=== PATIENT | female | born 1980 | race Caucasian/White ===

== ENCOUNTER → 2019-06-15 09:50 | Outpatient (CLI) | payer BC, SELFPAY | PROVIDERS: PCP Family Medicine; Visit Provider Family Medicine | DX: R06.02 Shortness of breath (principal); G47.33 Obstructive sleep apnea (adult) (pediatric); M79.604 Pain in right leg; M79.605 Pain in left leg; R68.3 Clubbing of fingers | CPT/HCPCS: 94060; 94640; G0399 ==

== ENCOUNTER 2021-12-02 15:09 | Outpatient (RCR) | payer OTHER, SELFPAY | END 2021-12-02 16:00 | disposition home or self-care (01) | LOC: PT 15:09 | PROVIDERS: Visit Provider Podiatrist | DX: M72.2 Plantar fascial fibromatosis (principal) | CPT/HCPCS: 97760 ==

== ENCOUNTER 2022-11-04 16:07 | Emergency (ER) | payer OTHER, SELFPAY ==
[2022-11-04 16:09] VITALS: BP 140/88; PULSE 93; RESP 18; TEMP 36.6; O2SAT 98; BMI 33.6
--- NOTE | 2022-11-04 16:38 | XR_ITS ---
PROCEDURE INFORMATION: Exam: XR Right Hand Exam date and time: 11/04/2022 4:35 PM Age: 42 years old Clinical indication: Injury or trauma; Other: Dog bite; Hand; Right; Additional info: Dog bite to right hand TECHNIQUE: Imaging protocol: Radiologic exam of the right hand. Views: 3 or more views. COMPARISON: No relevant prior studies available. FINDINGS: Bones/joints: Bones appear intact and normally aligned with normal mineralization. No significant arthritic deformities. There are no lytic skeletal lesions seen. Soft tissues: No radiopaque foreign bodies. No pathologic soft tissue calcification. IMPRESSION: 1. No acute fracture, dislocation or findings of osteomyelitis. 2. No radiopaque foreign bodies in the soft tissues.
--- NOTE | 2022-11-04 17:08 | EXP.UTC ---
Discharge Plan Disposition Patient Disposition: Home, Self-Care Condition: Good Prescriptions Prescriptions: New mupirocin 2 % ointment 1 applic topical TID 7 Days Qty: 15 0RF amoxicillin-pot clavulanate 875-125 mg Tablet 1 tab PO Q12H Qty: 20 0RF No Action varenicline [Chantix] 1 mg tablet 1 mg PO Label Comments: TAKE 1 TABLET BY MOUTH TWICE DAILY DIRECTED ropinirole 5 mg tablet 5 mg PO esomeprazole magnesium 40 mg capsule,delayed release(DR/EC) 40 mg PO sertraline 100 mg tablet 100 mg PO Label Comments: TAKE 1 & 1/2 TABLETS BY MOUTH ONCE DAILY ibuprofen 800 mg tablet 800 mg PO Q8H MDD 3/day Qty: 60 1RF ibuprofen 800 mg tablet 800 mg PO BID Qty: 60 1RF Mounjaro 2.5 mg/0.5 mL pen injector 2.5 mg SQ WEEKLY Label Comments: INJECT 2.5MG SUB-Q ONCE WEEKLY Referrals Follow up/Referrals: Robyn Walton [Primary Care Provider] - See instructions Activity Restrictions/Add. Instructions Additional Instructions/Restrictions: Keep the wounds clean and dry. Follow up with your regular doctor. Take the antibiotics as directed and apply the topical antibiotics as directed. Make sure you stay in contact with the health department regarding the health of the dog. Watch the puncture wounds for signs of worsening infection, such as worsening redness, drainage, swelling, etc. Return in 10 days to have the sutures removed. GO TO THE ER FOR ANY WORSENING SYMPTOMS Clinical Impressions Clinical Impression: Dog bite of right hand Instructions Patient Instructions: DI for Dog Bite Discharge ED Provider: Alistair Aguero [facility] [place] HPI General Stated complaint: AO 11/04@1400 bite by dog injured R ga\hand Mode of Arrival: Ambulatory Source of Information: Patient Limitations: No Limitations Time Seen by Provider: 11/04/22 17:08 Description of Symptoms (Recalled from Triage Doc. by RN): Dog bite to right hand. HEENT Symptoms (Recalled from RN notes): No Resp Symptoms (Recalled from RN notes): No Skin Symptoms (Recalled from RN notes): Yes MS Symptoms (Recalled from RN notes): No Functional Status (Recalled from RN notes): wnl History of Present Illness Provider Complaint: She was bit by a service dog about 1 hour ago. She has 2 puncture wounds on her right hand. She denies any other injury. Her tetanus immunization is not up to date. Related Data Home Medications Medication Instructions Recorded Confirmed esomeprazole magnesium 40 mg 40 mg PO 12/02/21 02/10/22 capsule,delayed release ropinirole 5 mg tablet 5 mg PO 12/02/21 02/10/22 sertraline 100 mg tablet 100 mg PO 12/02/21 02/10/22 varenicline 1 mg tablet (Chantix) 1 mg PO 12/02/21 02/10/22 tirzepatide 2.5 mg/0.5 mL 2.5 mg SQ WEEKLY 02/10/22 02/10/22 subcutaneous pen injector (Mounjaro) Previous Rx's Medication Instructions Recorded ibuprofen 800 mg tablet 800 mg PO Q8H pain, mild #60 tabs 12/02/21 ibuprofen 800 mg tablet 800 mg PO BID pain, mild #60 tabs 12/28/21 amoxicillin 875 mg-potassium 1 tab PO Q12H #20 tabs 11/04/22 clavulanate 125 mg tablet mupirocin 2 % topical ointment 1 applic topical TID 7 days #15 11/04/22 grams Allergies Allergy/AdvReac Type Severity Reaction Status Date / Time No Known Allergies Allergy Verified 02/10/22 09:08 Worker's Comp Is this a Worker's Comp case?: Yes Is this an [facility] Worker's Comp?: No Is this a [place] Worker's Comp?: No [facility] Disclaimer: The information contained in this section may have been updated after the patient was seen, as this information can be updated by other users. Medical History Anxiety Depression GERD (gastroesophageal reflux disease) Kidney stones Surgical History History of cholecystectomy History of hysterectomy Family History (Reviewed 11/04/22 @ 19:36 by Alistair Lopes
[2022-11-04 17:40] VITALS: BP 131/71; PULSE 89; RESP 17; TEMP 36.6; O2SAT 98
== END 2022-11-04 17:46 | disposition home or self-care (01) ==
PROVIDERS: Emergency Provider Nurse Practitioner Family; PCP Family Medicine
DX: S61.451A Open bite of right hand, initial encounter (principal); K21.9 Gastro-esophageal reflux disease without esophagitis; F41.9 Anxiety disorder, unspecified; F32.9 Major depressive disorder, single episode, unspecified; W54.0XXA Bitten by dog, initial encounter; Z87.891 Personal history of nicotine dependence; Z23 Encounter for immunization
CPT/HCPCS: 12001; 73130; 90471; 90715; 96372; 99204; 99213; G0463